=== PATIENT | female | born 1950 | race African-American/Black ===

== ENCOUNTER 2021-04-04 04:16 | Day surgery (SDC) | payer OTHER ==
[2021-03-30 14:53] VITALS: BMI 29.2
[2021-04-04] MEDS ORDERED: PROPOFOL 20 ML ONE (07:11)
[2021-04-04] MEDS ORDERED: LIDOCAINE HCL/PF 2% SDV 5ML VIAL ONE (07:15)
[2021-04-04] MEDS ORDERED: ONDANSETRON 4 MG/2 ML VIAL IVPUSH PRN (07:40)
[2021-04-04] MEDS ORDERED: oxyCODONE HCL 5 MG TABLET PO PRN (07:40)
[2021-04-04] MEDS ORDERED: IBUPROFEN 600 MG TABLET (FP) PO PRN (07:40)
[2021-04-04] MEDS ORDERED: IBUPROFEN 800 MG/8 ML IJ IVPB PRN (07:40)
[2021-04-04] MEDS ORDERED: ELECTROLYTE-148 SOLN 1,000 ML IV SCH (07:45)
[2021-04-04] MEDS ORDERED: ONDANSETRON 4 MG/2 ML VIAL ONE (07:56)
[2021-04-04] MEDS ORDERED: DEXAMETHASONE SOD PHOSPHATE 4 MG/1 ML VIAL ONE (07:56)
[2021-04-04] MEDS ORDERED: KETOROLAC TROMETHAMINE 30 MG/1 ML VIAL ONE (08:17)
[2021-04-04] MEDS ORDERED: LACTATED RINGERS SOLUTION 1,000 ML IV SCH (08:30)
[2021-04-04] MEDS ORDERED: IBUPROFEN 600 MG TABLET (FP) PO ONE (13:34)
[2021-04-04 15:21] VITALS: BP 140/72; PULSE 58; TEMP 98.8
== END 2021-04-04 14:30 | disposition home or self-care (01) ==
LOC: JASU-SURG 04:16
PROVIDERS: ATTEND Obstetrics & Gynecology
PROC: 0UDB7ZX Extraction of Endometrium, Via Natural or Artificial Opening, Diagnostic (ICD-10-PCS; 2021-04-04)
PROC: 0UB98ZX Excision of Uterus, Via Natural or Artificial Opening Endoscopic, Diagnostic (ICD-10-PCS; principal; 2021-04-04 07:30)
DX: N84.0 Polyp of corpus uteri (principal)
CPT/HCPCS: 82962; 87086; 88305-TC; 94760